=== PATIENT | female | born 1995 | race Caucasian/White ===

== ENCOUNTER 2022-01-18 08:35 | Emergency (ER) | payer BC ==
[2022-01-18] MEDS ORDERED: Dextrose 5%-Lactated Ringers 1,000 ML IV STA (10:11)
[2022-01-18] MEDS ORDERED: Ondansetron 4 MG/2 ML SDV IVPUSH ONE (10:11)
[2022-01-18] MEDS ORDERED: Ketorolac 30 MG/ML SDV IVPUSH ONE (11:02)
[2022-01-18] MEDS ORDERED: Prochlorperazine 10 MG/2 ML SDV IVPUSH ONE (11:02)
[2022-01-18] MEDS ORDERED: diphenhydrAMINE 50 MG/ML SDV IVPUSH ONE (11:02)
== END 2022-01-18 13:03 | disposition home or self-care (01) ==
LOC: MW.ED 08:35
DX: G43.909 Migraine, unspecified, not intractable, without status migrainosus (principal); Z72.0 Tobacco use
CPT/HCPCS: 70450; 96361; 96374; 96375; 99284; J0780; J1200; J1885; J2405; J7121

== ENCOUNTER 2023-09-12 17:00 | Inpatient (IN) | payer BC ==
[2023-09-12] MEDS ORDERED: ePHEDrine 50 MG/ML SDV IVPUSH PRN ×2 (19:22)
[2023-09-12] MEDS ORDERED: Phenylephrine HCl In 0.9% NaCl 1 MG/10 ML Syringe IVPUSH PRN (19:22)
[2023-09-12] MEDS ORDERED: dexmedeTOMIDine HCl 200 MCG/2 ML SDV EPIDUR SCH (19:30)
[2023-09-12] MEDS ORDERED: Nalbuphine 10 MG/1 ML Vial IVPUSH PRN (20:02)
[2023-09-12] MEDS ORDERED: Terbutaline 1 MG/ML SDV SUBCUT PRN (20:02)
[2023-09-12] MEDS ORDERED: Methylergonovine 0.2 MG/1 ML Amp IM PRN (20:02)
[2023-09-12] MEDS ORDERED: Sodium Chloride 0.9% 10 ML Syringe FLUSH PRN (20:02)
[2023-09-12] MEDS ORDERED: Sodium Chloride 0.9% 2.5 ML Syringe FLUSH PRN (20:02)
[2023-09-12] MEDS ORDERED: Promethazine 25 MG/ML SDV IM PRN (20:02)
[2023-09-12] MEDS ORDERED: Misoprostol 200 MCG Tab PO PRN (20:02)
[2023-09-12] MEDS ORDERED: Water For Irrigation,Sterile 1,000 ML Container IRR PRN (20:02)
[2023-09-12] MEDS ORDERED: Tranexamic Acid IN NACL,ISO-OS 1,000 MG in Premix Bag 1 BAG IV PRN (20:02)
[2023-09-12] MEDS ORDERED: Sodium Chloride 0.9% 20 ML SDV IV PRN (20:02)
[2023-09-12] MEDS ORDERED: Carboprost Tromethamine 250 MCG/1 mL Vial IM PRN (20:02)
[2023-09-12] MEDS ORDERED: Lidocaine 1% 50 ML MDV INJECT PRN (20:02)
[2023-09-12] MEDS ORDERED: Oxytocin/0.9 % Sodium Chloride 30 UNIT/500 ML BAG IV SCH (20:15)
[2023-09-12 20:28] LABS: HEMOGLOBIN 11.7 g/dL (12.0-16.0); MEAN CORPUSCULAR HGB CONC 34.4 g/dL (32.0-36.0); MEAN CORPUSCULAR VOLUME 87.2 fL (83.0-99.0); MEAN PLATELET VOLUME 11.5 fL (9.4-12.3); PLATELET COUNT,PLT 233 K/uL (150-400); WHITE BLOOD CELL COUNT,WBC 10.03 K/uL (3.9-11.3)
[2023-09-12] MEDS: Oxytocin/0.9 % Sodium Chloride 30 UNIT/500 ML BAG IV SCH (20:40)
[2023-09-12] MEDS: Lactated Ringers 1,000 ML IV SCH (20:40)
[2023-09-13] MEDS: Ropivacaine HCl/PF 400 MG in Premix Bag 1 BAG EPIDUR SCH (01:05)
[2023-09-13] MEDS: Ondansetron 4 MG/2 ML SDV IVPUSH PRN (14:06)
[2023-09-13] MEDS: Tranexamic Acid IN NACL,ISO-OS 1,000 MG in Premix Bag 1 BAG IV PRN (17:55)
[2023-09-13] MEDS ORDERED: Docusate Sodium 100 MG Cap PO PRN (18:18)
[2023-09-13] MEDS ORDERED: Methylergonovine 0.2 MG/1 ML Amp IM PRN (18:18)
[2023-09-13] MEDS ORDERED: Lanolin 100% Cream 7 GM Tube TOP PRN (18:18)
[2023-09-13 19:05] LABS: PH,UMBILICAL ARTERIAL 7.132 (7.18-7.38); PH,UMBILICAL VENOUS 7.313 (7.25-7.45)
[2023-09-13] MEDS: Ibuprofen 800 MG Tab PO PRN (20:06)
[2023-09-13] MEDS: Benzocaine/Menthol 20%-0.5% Spray 78 GM Cannister TOP PRN (20:08)
[2023-09-13] MEDS: Witch Hazel Medicated Pads 40/Jar TOP PRN (20:09)
[2023-09-13] MEDS: Acetaminophen 500 MG Tab PO PRN (22:30)
[2023-09-14 05:36] LABS: HEMATOCRIT 25.9 % (37.0-47.0); HEMOGLOBIN 8.9 g/dL (12.0-16.0)
== END 2023-09-14 19:15 | disposition home or self-care (01) | DRG 560 ==
LOC: MW.OBCHECK 17:00 → MW.OB 17:00 → MW.OBCHECK 20:05 → OBSVTOIN 09-13 17:45 → MW.OB 09-13 22:30
PROVIDERS: ADMIT Obstetrics & Gynecology; ATTEND Obstetrics & Gynecology
PROC: 10D07Z6 Extraction of Products of Conception, Vacuum, Via Natural or Artificial Opening (ICD-10-PCS; principal; 2023-09-13)
PROC: 0HQ9XZZ Repair Perineum Skin, External Approach (ICD-10-PCS; 2023-09-13)
PROC: 10907ZC Drainage of Amniotic Fluid, Therapeutic from Products of Conception, Via Natural or Artificial Opening (ICD-10-PCS; 2023-09-13)
PROC: 3E033VJ Introduction of Other Hormone into Peripheral Vein, Percutaneous Approach (ICD-10-PCS; 2023-09-13)
DX: O98.52 Other viral diseases complicating childbirth (principal); B00.9 Herpesviral infection, unspecified; Z3A.39 39 weeks gestation of pregnancy; Z37.0 Single live birth; O70.0 First degree perineal laceration during delivery; O76 Abnormality in fetal heart rate and rhythm complicating labor and delivery
CPT/HCPCS: 36415; 59025; 59409; 82803; 85014; 85018; 85027; 86592; 86850; 86900; 86901; A9270-GY; J2405; J2590; J2795; J3490; J7120